=== PATIENT | female | born 2000 | race Caucasian/White ===

== ENCOUNTER 2024-11-13 18:57 | Emergency (ER) | payer OTHER ==
[2024-11-13] MEDS ORDERED: Bacitracin 1 PK ONE (21:01)
[2024-11-13] MEDS ORDERED: Boostrix 0.5 ML (Tdap) VIAL (>/=7 yrs of age) ONE (21:04)
[2024-11-13] MEDS ORDERED: Lidocaine 1% PF 5 ML VIAL ONE (21:40)
== END 2024-11-13 22:23 | disposition home or self-care (01) ==
LOC: ERS 18:57
DX: S61.216A Laceration without foreign body of right little finger without damage to nail, initial encounter (principal); S61.411A Laceration without foreign body of right hand, initial encounter; F17.210 Nicotine dependence, cigarettes, uncomplicated; Z23 Encounter for immunization; W25.XXXA Contact with sharp glass, initial encounter
CPT/HCPCS: 12002; 90471; 90715; 96374; J2270